=== PATIENT | female | born 2000 | race American Indian/Alaskan Native ===

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

== ENCOUNTER 2020-07-05 21:48 | Emergency (ER) | payer MEDICAID ==
[2020-07-05] MEDS ORDERED: LORazepam 2 MG/ML SDV IVPUSH ONE ×2 (21:58→22:56)
[2020-07-05] MEDS ORDERED: Sodium Chloride 0.9% 1,000 ML IV ONE ×2 (21:58→22:48)
--- NOTE | 2020-07-05 22:03 | EDM.PDOC ---
ED HPI GENERAL MEDICAL PROBLEM - General Chief Complaint: General Stated Complaint: TOOK FENTONYL FEELING,CHEST TIGHTING, BODY TINGLIN Time Seen by Provider: 07/05/20 22:01 Source of Information: Reports: Patient, RN, RN Notes Reviewed History Limitations: Reports: No Limitations - History of Present Illness INITIAL COMMENTS - FREE TEXT/NARRATIVE: Patient is a 19-year-old female who presents to ER with complaint of having taken fentanyl and feeling very dizzy and vomiting. Patient states she and her friend were going to take a pill which she thought was Percocet. She states she took a half a pill at 930 this morning. She found out later was not Percocet and in fact fentanyl. States she tried to lay down all day, felt dizzy had been vomiting. When she tried to lay down she began having pain in the chest, numbness and tingling to the arms and legs. Patient states there may be a chance of , states last menstrual period was April. Patient denies any other drug use or alcohol use. Onset: Today, Sudden - Related Data Allergies Allergy/AdvReac Type Severity Reaction Status Date / Time No Known Allergies Allergy Verified 07/05/20 22:13 Home Meds: Home Meds Acetaminophen [Tylenol] 650 mg PO Q6H PRN tablet 09/20/19 [Rx] Acetaminophen/oxyCODONE [Percocet 325-5 MG] 1 tab PO Q4H PRN tablet 09/20/19 [Rx] Docusate Sodium [Colace] 100 mg PO Q12H PRN cap 09/20/19 [Rx] Ferrous Sulfate 325 mg PO DAILY@0800 tablet 09/20/19 [Rx] Ibuprofen [Motrin] 800 mg PO Q8H PRN tablet 09/20/19 [Rx] Vit with Ca/FA/Iron [ Plus Iron] 1 each PO DAILY tablet 09/20/19 [Rx] Past Medical History - Past Health History Medical/Surgical History: Denies 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 ED EXAM, GENERAL - Physical Exam Exam: See Below Exam Limited By: No Limitations General Appearance: Alert, WD/WN, Anxious Eye Exam: Bilateral Eye: EOMI, Normal Inspection Ears: Normal External Exam, Hearing Grossly Normal Nose: Normal Inspection Throat/Mouth: Normal Inspection, Normal Voice, No Airway Compromise Head: Atraumatic, Normocephalic Neck: Normal Inspection, Supple, Non-Tender, Full Range of Motion Respiratory/Chest: No Respiratory Distress, Lungs Clear, Normal Breath Sounds, No Accessory Muscle Use, Chest Non-Tender Cardiovascular: Normal Peripheral Pulses, Regular Rate, Rhythm, No Edema, No Gallop, No JVD, No Murmur, No Rub Peripheral Pulses: 2+: Radial (L), Radial (R) GI/Abdominal: Normal Bowel Sounds, Soft, Non-Tender, No Distention (Female) Exam: Deferred Rectal (Female) Exam: Deferred Back Exam: Normal Inspection, Full Range of Motion, NT Extremities: Normal Inspection, Normal Range of Motion, Non-Tender, Normal Capillary Refill, No Pedal Edema Neurological: Alert, Oriented, CN II-XII Intact, Normal Cognition, Normal Gait, Normal Reflexes, No Motor/Sensory Deficits Psychiatric: Anxious, Tearful Skin Exam: Warm, Dry, Intact, Normal Color, No Rash Lymphatic: No Adenopathy #1 Interpretation EKG Date: 07/05/20 Time: 21:55 Rhythm: NSR Rate (Beats/Min): 67 [place]: Normal P-Wave: Present QRS: Normal ST-T: Normal QT: Normal Comparison: NA - No Prior EKG Course - Vital Signs Last Recorded V/S: Last Vital Signs Temp 97.1 F 07/06/20 01:52 Pulse 65 07/06/20 01:52 Resp 18 07/06/20 01:52 BP 100/54 L 07/06/20 01:52 Pulse Ox 98 07/06/20 01:52 - Orders/Labs/Meds Orders: Active Orders 24 hr Category Date Time Status CULTURE URINE [RM] Stat Lab 07/05/20 22:40 Received Labs: Laboratory Tests 07/05/20 07/05/20 07/05/20 Range/Units 22:00 22:00 22:43 WBC 12.4 H (5.0-10.0) 10^3/uL RBC 4.87 (4.2-5.4) 10^6/uL Hgb 11.3 L D (12.0-16.0) g/dL Hct 35.2 L (37.0-47.0) % MCV 72.3 L (80-100) fL MCH 23.2 L (27.0-34.0) pg MCHC 32.1 L (33.0-35.0) g/dL Plt Count 355 D (150-450) 10^3/uL Neut % (Auto) 67.2 (42.2-75.2) % Lymph % (Auto) 21.1 (20.5-50.1) % Emanuel % (Auto) 10.3 H (2-8) % Eos % (Auto) 1.2 (1.0-3.0) % Baso % (Auto) 0.2 (0.0-1.0) % Sodium 139 (136-145) mmol/L Potassium 2.9 L (3.5-5.1) mmol/L Chloride 103 (98-107) mmol/L Carbon Dioxide 22 (21-32) mmol/L Anion Gap 16.9 H (7-13) mEq/L BUN 5 L (7-18) mg/dL Creatinine 0.68 (0.55-1.02) mg/dL Est Cr Clr Drug Dosing 124.57 mL/min Estimated GFR (MDRD) > 60 BUN/Creatinine Ratio 7.4 (No establ ref range) Glucose 108 H (70-99) mg/dL Calcium 8.5 (8.5-10.1) mg/dL Total Bilirubin 0.5 (0.2-1.0) mg/dL AST 16 (15-37) U/L ALT 32 (14-59) U/L Alkaline Phosphatase 86 (46-116) U/L Total Protein 7.3 (6.4-8.2) g/dL Albumin 3.3 L (3.4-5.0) g/dL Globulin 4.0 Albumin/Globulin Ratio 0.83 Urine Color (YELLOW) Urine Appearance (CLEAR) Urine pH (5.0-9.0) Ur Specific [place] (1.005-1.030) Urine Protein (NEGATIVE) Urine Glucose (UA) (NEGATIVE) Urine Ketones (NEGATIVE) Urine Occult Blood (NEGATIVE) Urine Nitrite (NEGATIVE) Urine Bilirubin (NEGATIVE) Urine Urobilinogen (0.2-1.0) mg/dL Ur Leukocyte Esterase (NEGATIVE) Urine RBC /HPF Urine WBC (0-5/HPF) /HPF Ur Epithelial Cells (NOT SEEN) /HPF Amorphous Sediment (NOT SEEN) /HPF Urine Bacteria (0-FEW/HPF) /HPF Urine HCG, Qual Positive Urine Opiates Screen (NEGATIVE) Ur Oxycodone Screen (NEGATIVE) Urine Methadone Screen (NEGATIVE) Ur Barbiturates Screen (NEGATIVE) U Tricyclic Antidepress (NEGATIVE) Ur Phencyclidine Scrn (NEGATIVE) Ur Amphetamine Screen (NEGATIVE) U Methamphetamines Scrn (NEGATIVE) Urine MDMA Screen (NEGATIVE) U Benzodiazepines Scrn (NEGATIVE) Urine Cocaine Screen (NEGATIVE) U Marijuana (THC) Screen (NEGATIVE) Ethyl Alcohol < 3 (0) mg/dL 07/05/20 07/05/20 Range/Units 22:43 22:43 WBC (5.0-10.0) 10^3/uL RBC (4.2-5.4) 10^6/uL Hgb (12.0-16.0) g/dL Hct (37.0-47.0) % MCV (80-100) fL MCH (27.0-34.0) pg MCHC (33.0-35.0) g/dL Plt Count (150-450) 10^3/uL Neut % (Auto) (42.2-75.2) % Lymph % (Auto) (20.5-50.1) % Emanuel % (Auto) (2-8) % Eos % (Auto) (1.0-3.0) % Baso % (Auto) (0.0-1.0) % Sodium (136-145) mmol/L Potassium (3.5-5.1) mmol/L Chloride (98-107) mmol/L Carbon Dioxide (21-32) mmol/L Anion Gap (7-13) mEq/L BUN (7-18) mg/dL Creatinine (0.55-1.02) mg/dL Est Cr Clr Drug Dosing mL/min Estimated GFR (MDRD) BUN/Creatinine Ratio (No establ ref range) Glucose (70-99) mg/dL Calcium (8.5-10.1) mg/dL Total Bilirubin (0.2-1.0) mg/dL AST (15-37) U/L ALT (14-59) U/L Alkaline Phosphatase (46-116) U/L Total Protein (6.4-8.2) g/dL Albumin (3.4-5.0) g/dL Globulin Albumin/Globulin Ratio Urine Color Dark yellow (YELLOW) Urine Appearance Turbid (CLEAR) Urine pH >= 9.0 (5.0-9.0) Ur Specific [place] 1.020 (1.005-1.030) Urine Protein 30 H (NEGATIVE) Urine Glucose (UA) Negative (NEGATIVE) Urine Ketones 80 H (NEGATIVE) Urine Occult Blood Negative (NEGATIVE) Urine Nitrite Positive H (NEGATIVE) Urine Bilirubin Negative (NEGATIVE) Urine Urobilinogen 4.0 H (0.2-1.0) mg/dL Ur Leukocyte Esterase Negative (NEGATIVE) Urine RBC Not seen /HPF Urine WBC 0-5 (0-5/HPF) /HPF Ur Epithelial Cells Moderate H (NOT SEEN) /HPF Amorphous Sediment Moderate H (NOT SEEN) /HPF Urine Bacteria Many H (0-FEW/HPF) /HPF Urine HCG, Qual Urine Opiates Screen Negative (NEGATIVE) Ur Oxycodone Screen Negative (NEGATIVE) Urine Methadone Screen Negative (NEGATIVE) Ur Barbiturates Screen Negative (NEGATIVE) U Tricyclic Antidepress Negative (NEGATIVE) Ur Phencyclidine Scrn Negative (NEGATIVE) Ur Amphetamine Screen Positive H (NEGATIVE) U Methamphetamines Scrn Positive H (NEGATIVE) Urine MDMA Screen Negative (NEGATIVE) U Benzodiazepines Scrn Negative (NEGATIVE) Urine Cocaine Screen Negative (NEGATIVE) U Marijuana (THC) Screen Negative (NEGATIVE) Ethyl Alcohol (0) mg/dL Meds: Medications Discontinued Medications Generic Name Dose Route Start Last Admin Trade Name Chemoq PRN Reason Stop Dose Admin Sodium Chloride 1,000 mls @ 999 mls/hr 07/05/20 21:58 07/05/20 22:00 Normal Saline IV 07/05/20 22:58 999 mls/hr .BOLUS ONE Administration Potassium Chloride 20 meq/ 100 mls @ 50 mls/hr 07/05/20 22:47 07/05/20 23:11 Premix IV 07/06/20 00:46 50 mls/hr ONETIME ONE Administration Sodium Chloride 1,000 mls @ 999 mls/hr 07/05/20 22:48 07/05/20 23:36 Normal Saline IV 07/05/20 23:48 300 mls/hr .BOLUS ONE Infusion Lorazepam 0.5 mg 07/05/20 21:58 07/05/20 22:06 Lorazepam 2 Mg/Ml Sdv IVPUSH 07/05/20 21:59 0.5 mg ONETIME ONE Administration Lorazepam 0.5 mg 07/05/20 22:56 07/05/20 23:07 Lorazepam 2 Mg/Ml Sdv IVPUSH 07/05/20 22:57 0.5 mg ONETIME ONE Administration Nitrofurantoin Macrocrystals 100 mg 07/06/20 01:04 07/06/20 02:12 Nitrofurantoin Monohydrate/Macrocrystalline 100 Mg Cap PO 07/06/20 01:05 100 mg ONETIME ONE Administration Ondansetron HCl 4 mg 07/05/20 22:55 07/05/20 23:05 Ondansetron 4 Mg/2 Ml Sdv IVPUSH 07/05/20 22:56 4 mg ONETIME ONE Administration Potassium Chloride 40 meq 07/05/20 22:48 07/05/20 23:08 Potassium Chloride 10 Meq Tab.Er PO 07/05/20 22:49 40 meq ONETIME ONE Administration Departure - Departure Time of Disposition: 02:21 Disposition: Home, Self-Care 01 Condition: Fair Clinical Impression: Hypokalemia, Drug abuse Qualifiers: Weeks of gestation: unspecified Qualified Code(s): Z34.90 - Encounter for supervision of normal , unspecified, unspecified trimester - Discharge Information *PRESCRIPTION DRUG MONITORING PROGRAM REVIEWED*: No *COPY OF PRESCRIPTION DRUG MONITORING REPORT IN PATIENT NARA: No Instructions: Prescription Drug Misuse Information, Hypokalemia, Care, Illegal Drug Use Information, Adult Forms: ED Department Discharge Additional Instructions: Refrain from using any kind of drugs RX: Macrobid 100mg orally twice daily for 5 days Start taking a vitamin Make an appointment with your Family Doctor for OB checks Sepsis Event Note (ED) - Focused Exam Vital Signs: Vital Signs Temp Pulse Resp BP Pulse Ox 07/06/20 01:52 97.1 F 65 18 100/54 L 98 07/06/20 01:00 63 18 99/48 L 95 07/06/20 00:01 66 18 103/56 L 100 07/05/20 23:41 70 18 119/55 L 100 07/05/20 21:57 97.8 F 86 21 H 134/59 L 100 - My Orders Last 24 Hours: My Active Orders 07/05/20 22:40 CULTURE URINE [RM] Stat - Assessment/Plan Last 24 Hours: My Active Orders 07/05/20 22:40 CULTURE URINE [] Stat
[2020-07-05 22:26] LABS: ANION GAP 16.9 mEq/L (7-13); CHLORIDE,CL 103 mmol/L (98-107); SODIUM,NA 139 mmol/L (136-145)
[2020-07-05] MEDS ORDERED: Potassium Chloride 20 MEQ in Premix Bag 1 BAG IV ONE (22:47)
[2020-07-05] MEDS ORDERED: Potassium Chloride 10 MEQ Tab.ER PO ONE (22:48)
[2020-07-05] MEDS ORDERED: Ondansetron 4 MG/2 ML SDV IVPUSH ONE (22:55)
[2020-07-06] MEDS ORDERED: Nitrofurantoin Monohydrate/Macrocrystalline 100 MG Cap PO ONE (01:04)
[2020-07-06 02:18] VITALS: BP 100/54; PULSE 65
== END 2020-07-06 02:14 | disposition home or self-care (01) ==
LOC: DL.ED 21:48
DX: O99.281 Endocrine, nutritional and metabolic diseases complicating pregnancy, first trimester (principal); E87.6 Hypokalemia; O99.321 Drug use complicating pregnancy, first trimester; F19.10 Other psychoactive substance abuse, uncomplicated
CPT/HCPCS: 36415; 80053; 80305-QW; 80307; 81001; 81025; 85025; 87086; 93005; 93010; 96365; 96366; 96375; 96376; 99284; 99284-25; A9270-GY; J2060; J2405; J3480; J7030

== ENCOUNTER 2021-08-07 22:43 | Emergency (ER) | payer MEDICAID | END 2021-08-07 23:22 | disposition left against medical advice (07) | LOC: DL.ED 22:43 | DX: K08.89 Other specified disorders of teeth and supporting structures (principal); Z53.21 Procedure and treatment not carried out due to patient leaving prior to being seen by health care provider ==

== ENCOUNTER 2022-02-02 21:21 | Emergency (ER) | payer MEDICAID ==
[2022-02-02] MEDS ORDERED: Sodium Chloride 0.9% 10 ML Syringe FLUSH PRN (21:27)
[2022-02-02] MEDS ORDERED: Ondansetron 4 MG/2 ML SDV IVPUSH ONE (21:29)
[2022-02-02 21:49] VITALS: BP 117/77; PULSE 98
[2022-02-02 22:06] LABS: ANION GAP 12.5 mEq/L (7-13); CHLORIDE,CL 104 mmol/L (98-107); SODIUM,NA 139 mmol/L (136-145)
[2022-02-02 22:14] LABS: ESTIMATED GFR 120 mL/min (>=60)
== END 2022-02-02 23:10 | disposition home or self-care (01) ==
LOC: DL.ED 21:21
DX: K52.9 Noninfective gastroenteritis and colitis, unspecified (principal); Z20.822 Contact with and (suspected) exposure to COVID-19
CPT/HCPCS: 36415; 80053; 82150; 83605; 83690; 85025; 86140; 96374; 99284; J2405

== ENCOUNTER 2022-06-21 22:08 | Emergency (ER) | payer MEDICAID ==
[2022-06-21 22:57] VITALS: BP 119/88; PULSE 127
== END 2022-06-21 23:16 | disposition left against medical advice (07) ==
LOC: DL.ED 22:08
DX: Z53.21 Procedure and treatment not carried out due to patient leaving prior to being seen by health care provider (principal)

== ENCOUNTER 2024-08-09 12:43 | Emergency (ER) | payer SELFPAY ==
[2024-08-09 12:56] VITALS: BP 136/75; PULSE 95
== END 2024-08-09 14:20 | disposition home or self-care (01) ==
LOC: DL.ED 12:43
DX: M79.671 Pain in right foot (principal); Z79.899 Other long term (current) drug therapy; Y04.0XXA Assault by unarmed brawl or fight, initial encounter
CPT/HCPCS: 73630-RT; 99283